=== PATIENT | female | born 1955 | race Caucasian/White ===

== ENCOUNTER → 2018-04-04 11:00 | Outpatient (CLI) | payer OTHER, SELFPAY ==
--- NOTE | 2018-04-04 11:45 | BRBX_PTH ---
PATIENT: YONI MEDINA LOC: [facility] U#:[id number] AGE/SX: 69/F ROOM: RE04/04/[address]: Dr. Cristi Sterling MD : 1955 BED: DIS: SPEC #: [id number] RECD: 04/04/18 14:02 STATUS: LILY TONIE #: [id number] GRECIA: 04/04/18 11:[address]: Cristi Sterling DEPT: SURGICAL PATHOLOGY RECD BY: Ernestine Robertson ENTERED: 04/04/18 14:22 SP TYPE: BREAST BX OTHR DR: Dr. Christoph Marroquin DO Tissues: Left breast, NOS Procedures: Surgery Specimen Level IV HEADER OPERATION: Left breast stereotactic needle core biopsy PRE-OP DIAGNOSIS: Deep/central/lateral microcalcifications TISSUE SUBMITTED: Left breast ISCHEMIC TIME: 2 minutes FIXATION TIME: 7.5 hours MICROSCOPIC DIAGNOSIS Left breast, stereotactic core biopsy: Focal fat necrosis. Benign microcalcifications. No evidence of malignancy. AM:victoria 04/05/18 COMMENT Rare ductal epithelium is noted. Clinical correlation is suggested. MICROSCOPIC DESCRIPTION Slides are reviewed. GROSS DESCRIPTION Received is one container labeled with the patient's name and not further designated. The specimen consists of multiple elongated fragments of haines-yellow fibroadipose tissue that in aggregate measure 7.5 x 3 x 0.3 cm. The entire specimen is submitted in three cassettes. / SJ:victoria 04/04/18 TC:5 CPT: 04749
--- NOTE | 2018-04-04 15:01 | HP.PCM_ITS ---
History and Physical Date of Admission: 04/04/18 HISTORY AND PHYSICAL - BREAST COMPLAINT ? Dee Dee Flores 1955 ? ? REFERRING PHYSICIAN: ??Echo De La Paz* ? CHIEF COMPLAINT: ??Abnormal left breast imaging-microcalcifications ? HPI: The patient is a 62 year old female with a complaint of an abnormal mammogram. ?The patient had a mammogram on ?17 follow-up diagnostic imaging on March 16, 2018?which demonstrated microcalcifications in the mid center left breast deep close to the chest wall-recommend biopsy. ?The patient denies a history of breast masses. ?She does??perform a self breast exam routinely. ?She notes no skin changes. ?She denies nipple discharge. ?She notes no axillary masses. ?She notes no family history of breast problems. ?She notes no significant breast trauma or breast difficulties in the past. ? The patient has had 4?pregnancies. ??Her last mammogram was 2017. ?Her last menstrual period was 2012. ?Her first menstrual period was at age 13. ? The patient microcalcifications on a right sided breast imaging/mammogram in 2017. ? I performed a right side Stereotactic guided core biopsy for her abnormal mammogram on August 20, 2016. ? ? The pathology returned as: ? ?Fibrocystic changes, focal intraductal hyperplasia without atypia, involutional changes and banal calcifications. ? The patient notes moderate bruising since the procedure. ? VITALS: There were no vitals taken for this visit. ? The patient is being seen by me today at the request of Dr. Christoph Marroquin, DO?for my opinion and advice regarding now left-sided microcalcifications. ? PAST MEDICAL HISTORY PAST MEDICAL HISTORY Diagnosis Date ? Diabetes mellitus type 2 in nonobese (HCC) 2004 ? Hyperlipemia ? ? Microalbuminuria 07/2015 ? ? PAST SURGICAL HISTORY PAST SURGICAL HISTORY Procedure Laterality Date ? BREAST BIOPSY W/STEREOTACTIC GUIDANCE Right 08/20/2016 ? Benign ? DELIVERY ONLY ? 1981,1983,1987,1992 ? , low transverse ? ? CURRENT MEDICATIONS ? Current Outpatient Prescriptions: Insulin [place], Disposable, (BD ULTRA-FINE CIELO PEN NEEDLE) 32 gauge x 5/32 ndle Use to inject medications twice daily Disp: 100 Each Rfl: 11 liraglutide (VICTOZA) 0.6 mg/ 0.1 ml subcutaneous pen injector Inject 0.6 mg subcutaneously once daily. Disp: 1 Pen Rfl: 3 buPROPion XL (WELLBUTRIN XL) 150 mg 24 hr tablet Take 1 tablet by mouth once daily. Disp: 90 tablet Rfl: 1 LANTUS SOLOSTAR U-100 INSULIN 100 unit/mL (3 mL) inpn inject 24 units subcutaneously at bedtime Disp: 12 mL Rfl: 5 metFORMIN ER (GLUCOPHAGE XR) 500 mg 24 hr tablet TAKE 2 TABLETS TWICE A DAY WITH MEALS Disp: 360 tablet Rfl: 0 lisinopril (ZESTRIL, PRINIVIL) 5 mg tablet TAKE 1 TABLET DAILY Disp: 90 tablet Rfl: 1 promethazine (PHENERGAN) 12.5 mg tablet Take 1-2 tablets by mouth every 6 hours as needed. Disp: 20 tablet Rfl: 1 pravastatin (PRAVACHOL) 20 mg tablet Take 1 tablet by mouth once daily. Disp: 90 tablet Rfl: 3 MULTI-VITAMIN ORAL Take ?by mouth. Disp: Rfl: Aspirin 81 mg Tab Take 1 tablet by mouth once daily. Take with food. Disp: 30 tablet Rfl: 11 blood sugar diagnostic (BLOOD GLUCOSE TEST) test strip Test blood sugar(s) 1 times daily. ?Dx: Diabetes mellitus type 2. Insulin: No Disp: 50 Strip Rfl: 11 Lancets lancets Test blood sugar(s) 1 times daily. ?Dx: diabetes mellitus type 2. Insulin: No Disp: 100 Each Rfl: 11 ? No current facility-administered medications for this visit. ? ALLERGIES: Patient has no known allergies. ? PERSONAL HISTORY: SOCIAL HISTORY Social History ??Marital status: ?Spouse name: Osiel ?Years of education: ?Number of children: 4 ? Occupational History Occupation ?Employer ?Comment ? [employer] ? Social History Main Topics ??Smoking status: Never Smoker ?Smokeless tobacco: Never Used ?Alcohol use: Yes ?Comment: Seldom ??Drug use: No ?Sexual activity: Not Currently ?Comment: Postmenopausal ? ? FAMILY HISTORY: FAMILY HISTORY FAMILY HISTORY Problem Relation Age of Onset ? Diabetes Father ? ? Hypertension Father ? ? Heart Maternal Grandfather ? 50's ? Breast Cancer Sister ? ? REVIEW OF SYMPTOMS: ??The review of systems data was entered by the nurse and reviewed by me ? Nursing Notes: Samantha Encarnacion RN ?03/24/2018 ?1:03 PM ?Signed REVIEW OF SYSTEMS: ?General:???The patient denies fatigue, denies weight loss, denies weight gain, denies feeling hot, and denies feelings of cold. ?Eyes: ?The patient denies glaucoma, denies eye injury/surgery, wears glasses or contacts. ?Ear/Nose/Throat: ?The patient denies allergies, denies hayfever, denies ear infections, and denies bloody noses. ?Cardiovascular: ?The patient denies chest pain, denies heart disease, denies high blood pressure,denies cardiac stent, denies prior heart attack, denies irregular heart beat, denies high cholesterol, ?denies poor circulation, denies heart failure, other cardiac issues, denies claudication, denies cold feet, denies peripheral arterial stent. ?Respiratory: ?The patient denies tuberculosis, denies pneumonia, denies frequent cough, denies pulmonary embolism, denies shortness of breath, and denies coughing up blood. ?Gastrointestinal: ?The patient denies difficulty swallowing, denies acid reflux, denies ulcers, notes vomiting, denies jaundice/hepatitis, denies gallbladder problems, denies black or tarry stools, denies hemorrhoids, denies bleeding from rectum, denies diverticulitis, denies constipation, notes diarrhea, denies loss of stool control, and denies hernias. ?Kidney/Bladder: ?The patient denies kidney stones, denies urine infections, and denies bloody urine. ?Skin: ?The patient denies a history of skin cancer, denies bleeding/changing moles, and denies a history of skin rash. ?Neurologic: ?The patient denies a history of epilepsy/convulsions, denies headaches, denies head/spinal injuries, and denies stroke/TIA. ?Psychiatric: ?The patient denies psychiatric medications, notes depression, and denies voices, denies substance abuse. ?Endocrine: ?The patient denies thyroid disorders, notes diabetes, and denies hormonal problems. ?Hematologic: ?The patient denies a history of bruising, denies bleeding, and denies anemia, denies blood clots. ?Infections: ?The patient denies a history of measles and mumps, denies rheumatic fever, and denies sexually transmitted diseases. ?Musculoskeletal: ?The patient denies back pain/injury, denies back problems, denies sciatica, denies knee/foot trouble, denies arthritis, or denies gout. ? ? When was patient's last Mammogram screening? 02/2018 ?Last Colonoscopy: ?never ? Samantha Encarnacion RN ? PHYSICAL EXAMINATION: ? General: ?The patient is 62 year old female, well nourished, well hydrated in no acute distress. ?The patient is oriented to time, place, and person. ? VITALS: Blood pressure 118/82, pulse 84, weight 58 kg (127 lb 12.8 oz).?Body mass index is 23.91 kg/m?.? ? HEENT: ?Normal cephalic, ataumatic, pupils are equally round, sclera are anicteric, mucous membranes are moist, oropharynx is clear. ?Neck has no masses, asymmetry or lymphadenopathy. ?Thyroid is unremarkable. ? Respiratory: ?Clear to auscultation and percussion. ?Normal respiratory excursion and pattern. ? Cardiac: ?Examination is regular rate and rhythm. ? Abdominal exam: ?Soft, nontender, ?with no palpable masses. ?No hepatosplenomegaly. ?No palpable hernias. ? Rectal exam: ?exam deferred Extremities: ?no clubbing, cyanosis or edema. ?No adenopathy. ? Breast: ?Visual inspection reveals no retractions, nipple inversion, or skin changes. ?Palpation of the right breast reveals no dominant or suspicious masses, but multiple benign-feeling nodules. ?Palpation of the left breast reveals no dominant or suspicious masses, but multiple benign-feeling nodules. ?Axillary exam demonstrates no suspicious masses in either the left or right axilla. ?There is no nipple discharge expressed from either the left or right breast. ? LABORATORY VALUES: As Noted ? RADIOLOGIC STUDIES: ?As Noted ? Assessment ? IMPRESSION: Left breast microcalcifications ? PLAN: ?I plan to perform a stereotactic biopsy of the left breast. ?The planned surgical procedure was discussed extensively with the patient. ?The risks, benefits, anticipated outcomes and possible complications were mentioned. ?My staff has also explained the procedure in understandable terms and the patient was given the option to take printed material concerning the planned procedure. ?The patient had the opportunity to ask questions concerning the planned procedure. ?The patient freely consents to the planned procedure. ? Diagnoses: (R92.8) Abnormal finding on breast imaging ?(primary encounter diagnosis) ? My findings have been communicated to Dr. Melanie Marroquin, ?via shared medical record. ?This note will be forwarded to Dr. Christoph Marroquin DO. ? Return to Clinic: The patient is instructed to follow-up with me after the testing has been completed. ? Cristi Sterling MD
--- NOTE | 2018-04-04 15:03 | OP.PCM_ITS ---
Report of Operation Date of Procedure: 04/04/18 Pre-Operative Diagnosis: left breast microcalcifications Post-Operative Diagnosis: left breast microcalcifications - successful biopsy Surgery/Procedure Performed:: left breast stereotactic guided vaccuum biopsy (mammotome) with specimen radiograph and marker placement epic ambulatory analyst: None Type of Anesthesia:: Local Specimen's removed: left breast Description of Procedure: The patient was brought to the stereotactic suite and informed of the plan course of events. The left breast was initially positioned in the true lateral to medial positionin the microcalcifications were identified but felt to be very close to the pectoralis muscle. Following this, the CC approach was undertaken and this demonstrated the microcalcifications with was felt to be more distance from the pectoralis musculature on the Acevedo stereotactic table. Mammographic image demonstrated the area of abnormality to be located in the center of the radiograph. Stereotactic images were then obtained which demonstrated good positioning of the abnormality for biopsy with good stroke bautista parameters. The breast was cleaned with Betadine area did one percent lidocaine was used to anesthetize the skin and a small stab incision made. An 8-gauge mammotome needle was placed into the pre-fire position. Stereotactic images demonstrated good positioning around the planned biopsy site. Local anesthetic injected deeply in the breast. The needle was deployed. Post deployment images demonstrated good positioning of the planned biopsy site. Multiple vacuum- assisted samples were obtained from the anticipated position in the 9 to 12:00 position. Specimen radiograph demonstrated micro-calcifications in the sample. A gel marker clip was deployed. Post biopsy images demonstrated good position of the clip relative the biopsy cavity. The breast was removed from compression. Steri-Strips and a dressing applied. Post procedure mammogram celeste ges were obtained.
== END ==
PROVIDERS: Family Provider Student in an Organized Health Care Education/Training Program; PCP Student in an Organized Health Care Education/Training Program; Visit Provider Surgery
DX: R92.0 Mammographic microcalcification found on diagnostic imaging of breast (principal); E11.9 Type 2 diabetes mellitus without complications; E78.5 Hyperlipidemia, unspecified; Z79.4 Long term (current) use of insulin; Z79.82 Long term (current) use of aspirin; Z79.899 Other long term (current) drug therapy; Z80.3 Family history of malignant neoplasm of breast
CPT/HCPCS: 19081; 88305; J7050; A4648